=== PATIENT | female | born 1935 | race Caucasian/White ===

== ENCOUNTER 2018-08-09 17:16 | Emergency (ER) | payer MEDICARE, BC ==
[~2018-08-09] VITALS: Ht 152.4 cm; Wt 86.4 kg
[2018-08-09] MEDS ORDERED: LEVOTHYROXINE100 MC1 PO (17:44)
[2018-08-09] MEDS ORDERED: HYDROCHLOROTHIA50 M1 PO (17:44)
[2018-08-09] MEDS ORDERED: KLOR-CON 1010 MEQ (17:44)
[2018-08-09] MEDS ORDERED: OSTEO BI-FLEX1 EAC1 PO (17:44)
[2018-08-09] MEDS ORDERED: MULTIVITAMIN1 SGL PO (17:44)
[2018-08-09] MEDS ORDERED: TYLENOL 325MG325 MG PO (17:45)
[2018-08-09] MEDS ORDERED: ASPIRIN E.C. 8181 MG (17:45)
[2018-08-09] MEDS ORDERED: AMLODIPINE BESY10 MG PO (17:45)
[2018-08-09] MEDS ORDERED: COZAAR100 MG PO (17:45)
[2018-08-09] MEDS ORDERED: ARICEPT5 M1 PO (17:46)
[2018-08-09 18:26] LABS: HEMATOCRIT 42.5 % (37.0-47.0); HEMOGLOBIN 14.7 g/dL (12.5-16.0); MEAN CELL VOLUME 93 fl (78-100); MEAN CORPUSCULAR HEMOGLOBIN 32 pg (27-31); MEAN CORPUSCULAR HGB CONC 35 g/dL (33-37); MEAN PLATELET VOLUME 11.3 fl (7.4-10.4); PLATELET COUNT 237 K/mm3 (130-400); RED BLOOD COUNT 4.58 M/mm3 (4.10-5.30); RED CELL DISTRIBUTION WIDTH 13.6 % (11.5-14.5); WHITE BLOOD COUNT 11.6 K/mm3 (4.8-10.8)
[2018-08-09 18:44] LABS: LYMPHOCYTE 14 % (20-51); MONOCYTE 3 % (3-10); NEUTROPHILS 82 % (42-75)
[2018-08-09 19:43] VITALS: BP 144/85
== END 2018-08-09 19:45 | disposition home or self-care (01) ==
LOC: ED 17:16
PROVIDERS: Family Medicine
DX: J45.909 Unspecified asthma, uncomplicated (principal); G47.30 Sleep apnea, unspecified; I10 Essential (primary) hypertension; F03.90 Unspecified dementia, unspecified severity, without behavioral disturbance, psychotic disturbance, mood disturbance, and anxiety; Z79.01 Long term (current) use of anticoagulants; Z79.82 Long term (current) use of aspirin; Z96.651 Presence of right artificial knee joint; Z96.652 Presence of left artificial knee joint; Z90.49 Acquired absence of other specified parts of digestive tract